=== PATIENT | male | born 1955 | race Caucasian/White ===

== ENCOUNTER → 2018-05-25 | Outpatient (CLI) | payer MEDICARE | END | disposition home or self-care (01) | LOC: CFH 10:39 | DX: Z13.6 Encounter for screening for cardiovascular disorders (principal); Z87.891 Personal history of nicotine dependence | CPT/HCPCS: 93978; 76706 ==

== ENCOUNTER 2021-02-24 07:57 | Outpatient (CLI) | payer MEDICARE, OTHER | END 2021-02-24 23:59 | disposition home or self-care (01) | LOC: ROC 07:57 | PROVIDERS: ATTEND Radiology Radiation Oncology | DX: C77.0 Secondary and unspecified malignant neoplasm of lymph nodes of head, face and neck (principal); K21.9 Gastro-esophageal reflux disease without esophagitis; Z87.891 Personal history of nicotine dependence | CPT/HCPCS: 99214; G0463 ==